=== PATIENT | female | born 1990 | race Caucasian/White ===

== ENCOUNTER 2016-07-28 12:42 | Emergency (ER) | payer MEDICARE | END 2016-07-28 14:20 | disposition home or self-care (01) | LOC: ER 12:42 | DX: G43.909 Migraine, unspecified, not intractable, without status migrainosus (principal); F32.9 Major depressive disorder, single episode, unspecified; F41.9 Anxiety disorder, unspecified; I10 Essential (primary) hypertension; F17.210 Nicotine dependence, cigarettes, uncomplicated; Z90.49 Acquired absence of other specified parts of digestive tract | CPT/HCPCS: 87502; 96361; 96374; 96375; J1100; J1200; J1885; J2765 ==

== ENCOUNTER 2016-10-18 21:46 | Emergency (ER) | payer MEDICARE | END 2016-10-18 23:10 | disposition home or self-care (01) | LOC: ER 21:46 | DX: S50.12XA Contusion of left forearm, initial encounter (principal); W19.XXXA Unspecified fall, initial encounter; Y92.009 Unspecified place in unspecified non-institutional (private) residence as the place of occurrence of the external cause ==